=== PATIENT | male | born 1955 | race Caucasian/White ===

== ENCOUNTER 2021-05-25 11:47 | Inpatient (IN) ==
[2021-05-25] MEDS ORDERED: ALBUTEROL 2.5 MG/3 ML NEB RESP TX PRN (12:44)
[2021-05-25] MEDS ORDERED: MIDAZOLAM 100 MG in SODIUM CHLORIDE 0.9% 80 ML IV PRN (12:46)
[2021-05-25] MEDS ORDERED: ONDANSETRON 4 MG/2 ML VIAL IV PRN (12:46)
[2021-05-25 13:18] LABS: ABG HCO3 19.5 MMOL/L (20-26); ABG Oxygen Saturation 96.7 % (95-100); ABG PCO2 54.3 MM HG (35-48); ABG PH 7.222 (7.35-7.45); ABG PO2 93.2 MM HG (80-95); ABG TCO2 20.4 MMOL/L (23-27); Allen Test Positive; Pt O2 Delivery Device Ventilator
[2021-05-25] MEDS: ALBUTEROL/IPRATROPIUM 3 ML NEB RESP TX SCH ×2 (13:23→19:00)
[2021-05-25] MEDS ORDERED: AZITHROMYCIN INJ 500 MG in SODIUM CHLORIDE 0.9% 250 ML IV ONE (13:24)
[2021-05-25 14:04] LABS: Basophils % 0.2 % (0.0-0.8); Hemoglobin 11.8 GM/DL (14.0-18.0); Immature Granulocytes % 4.3 %; Immature Granulocytes Absolute 0.37 #; Lymphocytes # 0.7 10*3/uL (1.4-4.0); Lymphocytes % 7.7 % (21.2-54.2); Mean Corpuscular HGB Conc 31.1 GM/DL (32-36); Mean Corpuscular Volume 93.6 FL (87-102); Mean Platelet Volume 11.7 FL (9.6-12.0); Monocytes % 6.4 % (1.7-12.7); Neutrophils % 81.4 % (38.7-73.9); Platelet Count 145 T/CUMM (130-400); Red Blood Count 4.06 MC/CUMM (3.8-5.5); Red Cell Distribution Width 13.3 % (9.3-17.3); White Blood Count 8.5 T/CUMM (4-12)
[2021-05-25 14:36] LABS: Alanine Aminotransferase 20 U/L (16-61); Albumin 2.7 G/DL (3.4-5.0); Alkaline Phosphatase 76 U/L (45-117); Aspartate Amino Transferase 16 U/L (0-37); Bilirubin,Total < 0.39 MG/DL (0.20-1.00); Blood Urea Nitrogen 124 MG/DL (7-18); Calcium 8.1 MG/DL (8.5-10.1); Carbon Dioxide 25 MMOL/L (21-32); Estimated Glom Filtration Rate 23 ML/MIN; Glucose 128 MG/DL (74-106); HDL Cholesterol 24 MG/DL (40-60); Osmolality,Calculated 327.8 MOS/KG (273-304); Potassium 5.9 MMOL/L (3.5-5.1); Risk Ratio 4.17; Sodium 144 MMOL/L (136-145); Total Protein 6.4 G/DL (6.4-8.2); Triglycerides 198 MG/DL (2-150); VLDL Cholesterol 39.6 MG/DL
[2021-05-25] MEDS: FAMOTIDINE 20 MG/2 ML VIAL IV SCH (15:10)
[2021-05-25] MEDS: methylPREDNISolone SOD SUC 40 MG/1 ML VIAL IV SCH ×2 (15:14→20:54)
[2021-05-25 15:26] LABS: Hepatitis B Core IgM Quant 0.16 Index; Hepatitis B Surface Ag Quant < 0.10 Index; Hepatitis B Surface Ag Result Non-Reactive (NonReactive); Hepatitis C Virus Ab Quant > 11.00 Index; Hepatitis C Virus Ab Result Reactive (NonReactive)
[2021-05-25] MEDS: cefTRIAXone 1,000 MG in SODIUM CHLORIDE 0.9% 100 ML IV SCH (16:52)
[2021-05-25] MEDS ORDERED: ENOXAPARIN 100 MG/ML SYRINGE SUBCUT SCH (17:00)
[2021-05-25] MEDS: INSULIN LISPRO 100 UNIT/ML SUBCUT SCH (18:41)
[2021-05-25] MEDS ORDERED: LORazepam 2 MG/1 ML VIAL ONE (23:17)
[2021-05-25] MEDS ORDERED: LORazepam 2 MG/1 ML VIAL IV ONE (23:27)
[2021-05-26] MEDS: INSULIN LISPRO 100 UNIT/ML SUBCUT SCH ×4 (00:05→18:31)
[2021-05-26] MEDS: FAMOTIDINE 20 MG/2 ML VIAL IV SCH ×2 (00:23→13:58)
[2021-05-26] MEDS: ALBUTEROL/IPRATROPIUM 3 ML NEB RESP TX SCH ×4 (00:54→19:53)
[2021-05-26 04:48] LABS: ABG HCO3 22.5 MMOL/L (20-26); ABG Oxygen Saturation 97.8 % (95-100); ABG PCO2 37.8 MM HG (35-48); ABG PH 7.393 (7.35-7.45); ABG PO2 116.7 MM HG (80-95); ABG TCO2 23.7 MMOL/L (23-27)
[2021-05-26] MEDS: methylPREDNISolone SOD SUC 40 MG/1 ML VIAL IV SCH ×3 (05:17→21:22)
[2021-05-26 06:52] LABS: Basophils # 0.1 10*3/uL (0.0-0.2); Basophils % 0.6 % (0.0-0.8); Hematocrit 35.5 VOL% (42.0-52.0); Hemoglobin 11.7 GM/DL (14.0-18.0); Immature Granulocytes % 3.3 %; Immature Granulocytes Absolute 0.27 #; Lymphocytes # 0.9 10*3/uL (1.4-4.0); Lymphocytes % 11.4 % (21.2-54.2); Mean Corpuscular Volume 89.9 FL (87-102); Mean Platelet Volume 11.6 FL (9.6-12.0); Monocytes % 6.5 % (1.7-12.7); Neutrophils % 78.2 % (38.7-73.9); Platelet Count 129 T/CUMM (130-400); Red Blood Count 3.95 MC/CUMM (3.8-5.5); Red Cell Distribution Width 13.2 % (9.3-17.3); White Blood Count 8.1 T/CUMM (4-12)
[2021-05-26 07:13] LABS: Albumin 2.5 G/DL (3.4-5.0); Bilirubin,Total 0.6 MG/DL (0.20-1.00); Calcium 8.3 MG/DL (8.5-10.1); Osmolality,Calculated 331.4 MOS/KG (273-304); Potassium 5.1 MMOL/L (3.5-5.1); Total Protein 6.4 G/DL (6.4-8.2)
[2021-05-26 08:39] LABS: Anisocytosis 1+; Band Neutrophils 5 % (0-10); Lymphocytes 14 % (20-55); Platelet Estimate Adequate; Segmented Neutrophils 77 % (50-85); Total Cells Counted 100
[2021-05-26] MEDS: LORazepam 2 MG/1 ML VIAL IV PRN (13:50)
[2021-05-26] MEDS: ENOXAPARIN 30 MG/0.3 ML SYRINGE SUBCUT SCH (13:56)
[2021-05-26] MEDS: cefTRIAXone 1,000 MG in SODIUM CHLORIDE 0.9% 100 ML IV SCH (13:58)
[2021-05-26] MEDS: AZITHROMYCIN INJ 250 MG in SODIUM CHLORIDE 0.9% 250 ML IV SCH (13:59)
[2021-05-27] MEDS: INSULIN LISPRO 100 UNIT/ML SUBCUT SCH ×4 (00:22→18:20)
[2021-05-27] MEDS: FAMOTIDINE 20 MG/2 ML VIAL IV SCH ×2 (00:22→08:15)
[2021-05-27] MEDS: ALBUTEROL/IPRATROPIUM 3 ML NEB RESP TX SCH ×4 (00:53→18:45)
[2021-05-27 05:04] LABS: ABG Base Excess -0.5 MMOL/L (-2.5-2.5); ABG Oxygen Saturation 97.1 % (95-100); ABG PCO2 42.1 MM HG (35-48); ABG PH 7.377 (7.35-7.45); ABG PO2 92.4 MM HG (80-95); ABG TCO2 22.1 MMOL/L (23-27)
[2021-05-27 05:13] LABS: Basophils % 0.2 % (0.0-0.8); Hematocrit 37.4 VOL% (42.0-52.0); Hemoglobin 11.7 GM/DL (14.0-18.0); Immature Granulocytes % 1.9 %; Immature Granulocytes Absolute 0.18 #; Lymphocytes # 0.8 10*3/uL (1.4-4.0); Lymphocytes % 8.7 % (21.2-54.2); Mean Corpuscular HGB Conc 31.3 GM/DL (32-36); Mean Corpuscular Volume 92.1 FL (87-102); Mean Platelet Volume 11.9 FL (9.6-12.0); Monocytes % 7.7 % (1.7-12.7); Neutrophils % 81.5 % (38.7-73.9); Platelet Count 139 T/CUMM (130-400); Red Blood Count 4.06 MC/CUMM (3.8-5.5); Red Cell Distribution Width 13.2 % (9.3-17.3); White Blood Count 9.7 T/CUMM (4-12)
[2021-05-27 05:50] LABS: Calcium 8.3 MG/DL (8.5-10.1); Osmolality,Calculated 341.3 MOS/KG (273-304); Potassium 5.2 MMOL/L (3.5-5.1)
[2021-05-27] MEDS: methylPREDNISolone SOD SUC 40 MG/1 ML VIAL IV SCH ×3 (05:50→20:31)
[2021-05-27] MEDS ORDERED: SODIUM POLYSTYRENE SULFATE 15 GM/60 ML BOTTLE PO PRN (10:49)
[2021-05-27] MEDS: ENOXAPARIN 30 MG/0.3 ML SYRINGE SUBCUT SCH (12:24)
[2021-05-27] MEDS: cefTRIAXone 1,000 MG in SODIUM CHLORIDE 0.9% 100 ML IV SCH (14:02)
[2021-05-27] MEDS: TRIAMCINOLONE 0.025% CREAM 15 GM TUBE TOP SCH ×2 (14:12→20:27)
[2021-05-27] MEDS: AZITHROMYCIN INJ 250 MG in SODIUM CHLORIDE 0.9% 250 ML IV SCH (14:32)
[2021-05-27] MEDS: LORazepam 2 MG/1 ML VIAL IV PRN (15:48)
[2021-05-28] MEDS: ALBUTEROL/IPRATROPIUM 3 ML NEB RESP TX SCH ×4 (00:32→18:58)
[2021-05-28] MEDS: INSULIN LISPRO 100 UNIT/ML SUBCUT SCH ×4 (00:55→17:47)
[2021-05-28 04:27] LABS: ABG HCO3 26.1 MMOL/L (20-26); ABG Oxygen Saturation 97.5 % (95-100); ABG PCO2 42.7 MM HG (35-48); ABG PH 7.408 (7.35-7.45); ABG TCO2 23.7 MMOL/L (23-27)
[2021-05-28 05:30] LABS: Basophils % 0.2 % (0.0-0.8); Hematocrit 40.1 VOL% (42.0-52.0); Hemoglobin 12.8 GM/DL (14.0-18.0); Immature Granulocytes % 1.4 %; Immature Granulocytes Absolute 0.13 #; Lymphocytes % 10.6 % (21.2-54.2); Mean Corpuscular HGB Conc 31.9 GM/DL (32-36); Mean Corpuscular Volume 91.3 FL (87-102); Mean Platelet Volume 11.6 FL (9.6-12.0); Monocytes % 10.6 % (1.7-12.7); Neutrophils % 77.2 % (38.7-73.9); Platelet Count 146 T/CUMM (130-400); Red Blood Count 4.39 MC/CUMM (3.8-5.5); Red Cell Distribution Width 13.1 % (9.3-17.3); White Blood Count 9.4 T/CUMM (4-12)
[2021-05-28 06:04] LABS: Calcium 8.7 MG/DL (8.5-10.1); Potassium 5.3 MMOL/L (3.5-5.1)
[2021-05-28] MEDS: methylPREDNISolone SOD SUC 40 MG/1 ML VIAL IV SCH ×3 (06:11→21:50)
[2021-05-28] MEDS: FAMOTIDINE 20 MG/2 ML VIAL IV SCH (08:24)
[2021-05-28] MEDS: TRIAMCINOLONE 0.025% CREAM 15 GM TUBE TOP SCH ×2 (08:24→21:50)
[2021-05-28] MEDS ORDERED: LABETALOL 20 MG/4 ML SYRINGE IV PRN (10:00)
[2021-05-28] MEDS: carvediloL 25 MG TABLET PO SCH ×2 (10:56→21:50)
[2021-05-28] MEDS: ENOXAPARIN 30 MG/0.3 ML SYRINGE SUBCUT SCH (10:58)
[2021-05-28] MEDS: SODIUM CHLORIDE 0.45% 1,000 ML IV SCH (13:17)
[2021-05-28] MEDS: cefTRIAXone 1,000 MG in SODIUM CHLORIDE 0.9% 100 ML IV SCH (13:18)
[2021-05-28] MEDS: AZITHROMYCIN INJ 250 MG in SODIUM CHLORIDE 0.9% 250 ML IV SCH (14:45)
[2021-05-28] MEDS: SERTRALINE 100 MG TABLET PO SCH ×2 (14:45→21:50)
[2021-05-28] MEDS: FENOFIBRATE 145 MG TABLET PO SCH (14:45)
[2021-05-29] MEDS: INSULIN LISPRO 100 UNIT/ML SUBCUT SCH ×4 (00:52→17:58)
[2021-05-29] MEDS: ALBUTEROL/IPRATROPIUM 3 ML NEB RESP TX SCH ×4 (01:00→19:00)
[2021-05-29 04:07] LABS: ABG HCO3 25.3 MMOL/L (20-26); ABG Oxygen Saturation 98.8 % (95-100); ABG PCO2 41.4 MM HG (35-48); ABG PH 7.403 (7.35-7.45); ABG TCO2 22.9 MMOL/L (23-27)
[2021-05-29] MEDS: methylPREDNISolone SOD SUC 40 MG/1 ML VIAL IV SCH ×3 (06:24→21:53)
[2021-05-29 06:52] LABS: Basophils % 0.2 % (0.0-0.8); Eosinophils % 0.1 % (0.00-10.9); Immature Granulocytes % 1.3 %; Immature Granulocytes Absolute 0.13 #; Lymphocytes # 1.1 10*3/uL (1.4-4.0); Lymphocytes % 10.3 % (21.2-54.2); Mean Corpuscular HGB Conc 31.6 GM/DL (32-36); Mean Corpuscular Volume 91.8 FL (87-102); Monocytes % 8.5 % (1.7-12.7); Neutrophils % 79.6 % (38.7-73.9); Red Blood Count 4.14 MC/CUMM (3.8-5.5); White Blood Count 10.3 T/CUMM (4-12)
[2021-05-29 06:53] LABS: Platelet Count 108 T/CUMM (130-400)
[2021-05-29 07:31] LABS: Calcium 8.6 MG/DL (8.5-10.1); Osmolality,Calculated 333.3 MOS/KG (273-304); Potassium 5.1 MMOL/L (3.5-5.1)
[2021-05-29] MEDS: TRIAMCINOLONE 0.025% CREAM 15 GM TUBE TOP SCH ×2 (08:08→20:24)
[2021-05-29] MEDS: FAMOTIDINE 20 MG/2 ML VIAL IV SCH (08:08)
[2021-05-29] MEDS: SERTRALINE 100 MG TABLET PO SCH ×2 (08:08→20:24)
[2021-05-29] MEDS: FENOFIBRATE 145 MG TABLET PO SCH (08:08)
[2021-05-29] MEDS: carvediloL 25 MG TABLET PO SCH ×2 (08:08→20:22)
[2021-05-29] MEDS: INSULIN GLARGINE 100 UNIT/ML SUBCUT SCH ×2 (10:11→20:23)
[2021-05-29] MEDS: SODIUM CHLORIDE 0.45% 1,000 ML IV SCH (10:11)
[2021-05-29] MEDS: ENOXAPARIN 30 MG/0.3 ML SYRINGE SUBCUT SCH (10:33)
[2021-05-29 10:35] LABS: Bilirubin,Urine Negative (Negative); Blood, Urine Moderate mg/dL (Negative); Glucose,Urine (UA) >=500 mg/dL (Negative); Ketones,Urine Negative (Negative); Mucus,Urine Occasional /LPF (Occasional); Nitrite,Urine Negative (Negative); Protein,Urine 100 MG/DL; RBC,Urine 25 /HPF (0-4); Urine Appearance CLEAR (Clear); Urine Color Yellow (Yellow); Urine Specific Gravity 1.018 (1.001-1.035); Urine Urobilinogen < 2.0 EU/DL (0.2-1.0)
[2021-05-29] MEDS: DEXMEDETOMIDINE 200 MCG in SODIUM CHLORIDE 0.9% 48 ML IV PRN ×3 (11:21→20:11)
[2021-05-29] MEDS: MORPHINE 2 MG/1 ML SYRINGE IV PRN (12:09)
[2021-05-29] MEDS: cefTRIAXone 1,000 MG in SODIUM CHLORIDE 0.9% 100 ML IV SCH (14:28)
[2021-05-29] MEDS: AZITHROMYCIN INJ 250 MG in SODIUM CHLORIDE 0.9% 250 ML IV SCH (15:01)
[2021-05-29] MEDS ORDERED: DEXMEDETOMIDINE 400 MCG in SODIUM CHLORIDE 0.9% 96 ML IV PRN (21:03)
[2021-05-30] MEDS: ALBUTEROL/IPRATROPIUM 3 ML NEB RESP TX SCH ×4 (00:05→19:30)
[2021-05-30] MEDS: INSULIN LISPRO 100 UNIT/ML SUBCUT SCH ×4 (00:32→18:32)
[2021-05-30] MEDS: DEXMEDETOMIDINE 200 MCG in SODIUM CHLORIDE 0.9% 48 ML IV PRN (01:01)
[2021-05-30 03:40] LABS: ABG Base Excess 2.8 MMOL/L (-2.5-2.5); ABG HCO3 26.9 MMOL/L (20-26); ABG Oxygen Saturation 98.5 % (95-100); ABG PCO2 44.9 MM HG (35-48); ABG PH 7.404 (7.35-7.45); ABG TCO2 24.7 MMOL/L (23-27)
[2021-05-30] MEDS: methylPREDNISolone SOD SUC 40 MG/1 ML VIAL IV SCH ×3 (05:53→20:32)
[2021-05-30 06:17] LABS: Basophils % 0.1 % (0.0-0.8); Eosinophils % 0.1 % (0.00-10.9); Hematocrit 40.5 VOL% (42.0-52.0); Hemoglobin 12.7 GM/DL (14.0-18.0); Immature Granulocytes % 0.9 %; Lymphocytes # 0.9 10*3/uL (1.4-4.0); Lymphocytes % 7.9 % (21.2-54.2); Mean Corpuscular HGB Conc 31.4 GM/DL (32-36); Mean Corpuscular Volume 92.3 FL (87-102); Mean Platelet Volume 12.1 FL (9.6-12.0); Monocytes % 7.4 % (1.7-12.7); Neutrophils % 83.6 % (38.7-73.9); Platelet Count 100 T/CUMM (130-400); Red Blood Count 4.39 MC/CUMM (3.8-5.5); Red Cell Distribution Width 12.6 % (9.3-17.3); White Blood Count 11.1 T/CUMM (4-12)
[2021-05-30 06:31] LABS: Calcium 8.6 MG/DL (8.5-10.1)
[2021-05-30 06:33] LABS: Hypochromasia 1+; Microcytosis 1+; Platelet Estimate Decreased
[2021-05-30 06:36] LABS: Osmolality,Calculated 319.4 MOS/KG (273-304)
[2021-05-30] MEDS: SODIUM CHLORIDE 0.45% 1,000 ML IV SCH (08:34)
[2021-05-30] MEDS: FAMOTIDINE 20 MG/2 ML VIAL IV SCH (08:37)
[2021-05-30] MEDS: TRIAMCINOLONE 0.025% CREAM 15 GM TUBE TOP SCH ×2 (08:37→20:29)
[2021-05-30] MEDS: INSULIN GLARGINE 100 UNIT/ML SUBCUT SCH ×2 (08:37→20:21)
[2021-05-30] MEDS: carvediloL 25 MG TABLET PO SCH ×2 (08:37→20:21)
[2021-05-30] MEDS: FENOFIBRATE 145 MG TABLET PO SCH (08:37)
[2021-05-30] MEDS: SERTRALINE 100 MG TABLET PO SCH ×2 (08:37→20:21)
[2021-05-30] MEDS: ENOXAPARIN 30 MG/0.3 ML SYRINGE SUBCUT SCH (10:42)
[2021-05-30] MEDS: cefTRIAXone 1,000 MG in SODIUM CHLORIDE 0.9% 100 ML IV SCH (14:10)
[2021-05-30] MEDS: AZITHROMYCIN INJ 250 MG in SODIUM CHLORIDE 0.9% 250 ML IV SCH (15:14)
[2021-05-30] MEDS: levETIRAcetam 250 MG TABLET PO SCH (20:24)
[2021-05-30] MEDS: MORPHINE 2 MG/1 ML SYRINGE IV PRN (22:50)
[2021-05-31 00:01] LABS: ABG Base Excess 1.2 MMOL/L (-2.5-2.5); ABG HCO3 25.5 MMOL/L (20-26); ABG Oxygen Saturation 99.3 % (95-100); ABG PCO2 65.4 MM HG (35-48)
[2021-05-31] MEDS: INSULIN LISPRO 100 UNIT/ML SUBCUT SCH ×5 (00:47→23:54)
[2021-05-31] MEDS: SODIUM CHLORIDE 0.45% 1,000 ML IV SCH (01:01)
[2021-05-31 01:08] LABS: ABG Base Excess 1.4 MMOL/L (-2.5-2.5); ABG HCO3 25.7 MMOL/L (20-26); ABG Oxygen Saturation 99.2 % (95-100); ABG PCO2 59.3 MM HG (35-48); ABG TCO2 26.4 MMOL/L (23-27)
[2021-05-31] MEDS: ALBUTEROL/IPRATROPIUM 3 ML NEB RESP TX SCH ×4 (01:32→18:51)
[2021-05-31 01:46] LABS: Basophils % 0.1 % (0.0-0.8); Eosinophils % 0.1 % (0.00-10.9); Hemoglobin 10.7 GM/DL (14.0-18.0); Immature Granulocytes % 0.9 %; Lymphocytes # 0.7 10*3/uL (1.4-4.0); Lymphocytes % 6.3 % (21.2-54.2); Mean Corpuscular HGB Conc 30.6 GM/DL (32-36); Mean Corpuscular Volume 93.3 FL (87-102); Mean Platelet Volume 12.4 FL (9.6-12.0); Monocytes % 3.8 % (1.7-12.7); Neutrophils % 88.8 % (38.7-73.9); Red Blood Count 3.75 MC/CUMM (3.8-5.5); Red Cell Distribution Width 12.3 % (9.3-17.3); White Blood Count 10.9 T/CUMM (4-12)
[2021-05-31 01:50] LABS: Platelet Count 92 T/CUMM (130-400)
[2021-05-31 02:11] LABS: Calcium 8.2 MG/DL (8.5-10.1)
[2021-05-31 02:14] LABS: Osmolality,Calculated 299.4 MOS/KG (273-304); Potassium 5.4 MMOL/L (3.5-5.1)
[2021-05-31 02:37] LABS: Hypochromasia 1+; Microcytosis 1+; Platelet Estimate Decreased
[2021-05-31 03:22] LABS: ABG Base Excess 1.6 MMOL/L (-2.5-2.5); ABG HCO3 25.9 MMOL/L (20-26); ABG Oxygen Saturation 99.3 % (95-100); ABG PCO2 59.2 MM HG (35-48); ABG PH 7.303 (7.35-7.45); ABG TCO2 26.6 MMOL/L (23-27)
[2021-05-31] MEDS: methylPREDNISolone SOD SUC 40 MG/1 ML VIAL IV SCH ×3 (06:17→21:49)
[2021-05-31] MEDS: carvediloL 25 MG TABLET PO SCH ×2 (09:14→20:09)
[2021-05-31] MEDS: INSULIN GLARGINE 100 UNIT/ML SUBCUT SCH ×2 (09:14→20:00)
[2021-05-31] MEDS: FAMOTIDINE 20 MG/2 ML VIAL IV SCH (09:27)
[2021-05-31] MEDS: levETIRAcetam 250 MG TABLET PO SCH ×2 (09:27→20:01)
[2021-05-31] MEDS: SERTRALINE 100 MG TABLET PO SCH ×2 (09:27→20:01)
[2021-05-31] MEDS: FENOFIBRATE 145 MG TABLET PO SCH (09:27)
[2021-05-31] MEDS: TRIAMCINOLONE 0.025% CREAM 15 GM TUBE TOP SCH ×2 (09:28→20:01)
[2021-05-31] MEDS: cefTRIAXone 1,000 MG in SODIUM CHLORIDE 0.9% 100 ML IV SCH (12:38)
[2021-05-31] MEDS: ENOXAPARIN 30 MG/0.3 ML SYRINGE SUBCUT SCH (12:38)
[2021-05-31] MEDS: LACTULOSE 20 GM/30 ML UDCUP PO SCH ×2 (16:24→20:00)
[2021-06-01] MEDS: ALBUTEROL/IPRATROPIUM 3 ML NEB RESP TX SCH ×4 (00:22→19:40)
[2021-06-01 03:44] LABS: ABG Base Excess 3.9 MMOL/L (-2.5-2.5); ABG HCO3 27.9 MMOL/L (20-26); ABG Oxygen Saturation 95.5 % (95-100); ABG PCO2 46.2 MM HG (35-48); ABG PH 7.409 (7.35-7.45); ABG PO2 76.2 MM HG (80-95); ABG TCO2 26.1 MMOL/L (23-27)
[2021-06-01 05:00] LABS: Basophils % 0.1 % (0.0-0.8); Eosinophils % 0.2 % (0.00-10.9); Hematocrit 36.5 VOL% (42.0-52.0); Hemoglobin 11.4 GM/DL (14.0-18.0); Immature Granulocytes % 0.9 %; Lymphocytes # 1.2 10*3/uL (1.4-4.0); Lymphocytes % 10.3 % (21.2-54.2); Mean Corpuscular HGB Conc 31.2 GM/DL (32-36); Mean Corpuscular Volume 91.5 FL (87-102); Mean Platelet Volume 12.6 FL (9.6-12.0); Monocytes % 7.4 % (1.7-12.7); Neutrophils % 81.1 % (38.7-73.9); Platelet Count 92 T/CUMM (130-400); Red Blood Count 3.99 MC/CUMM (3.8-5.5); Red Cell Distribution Width 12.2 % (9.3-17.3); White Blood Count 11.7 T/CUMM (4-12)
[2021-06-01 05:18] LABS: Calcium 8.1 MG/DL (8.5-10.1); Osmolality,Calculated 294.3 MOS/KG (273-304); Potassium 4.6 MMOL/L (3.5-5.1)
[2021-06-01] MEDS: INSULIN LISPRO 100 UNIT/ML SUBCUT SCH ×4 (05:40→23:45)
[2021-06-01] MEDS: methylPREDNISolone SOD SUC 40 MG/1 ML VIAL IV SCH ×3 (05:48→21:15)
[2021-06-01] MEDS: FENOFIBRATE 145 MG TABLET PO SCH (08:09)
[2021-06-01] MEDS: LACTULOSE 20 GM/30 ML UDCUP PO SCH ×2 (08:09→21:15)
[2021-06-01] MEDS: carvediloL 25 MG TABLET PO SCH ×2 (08:10→21:15)
[2021-06-01] MEDS: levETIRAcetam 250 MG TABLET PO SCH ×2 (08:10→21:15)
[2021-06-01] MEDS: SERTRALINE 100 MG TABLET PO SCH ×2 (08:10→21:15)
[2021-06-01] MEDS: FAMOTIDINE 20 MG/2 ML VIAL IV SCH (08:11)
[2021-06-01] MEDS: INSULIN GLARGINE 100 UNIT/ML SUBCUT SCH ×2 (08:11→21:15)
[2021-06-01] MEDS: TRIAMCINOLONE 0.025% CREAM 15 GM TUBE TOP SCH ×2 (08:12→21:15)
[2021-06-01] MEDS: ENOXAPARIN 30 MG/0.3 ML SYRINGE SUBCUT SCH (12:21)
[2021-06-01] MEDS: MORPHINE 2 MG/1 ML SYRINGE IV PRN (12:43)
[2021-06-01] MEDS: cefTRIAXone 1,000 MG in SODIUM CHLORIDE 0.9% 100 ML IV SCH (12:44)
[2021-06-02] MEDS: ALBUTEROL/IPRATROPIUM 3 ML NEB RESP TX SCH ×4 (00:41→20:38)
[2021-06-02 04:38] LABS: ABG Base Excess 4.1 MMOL/L (-2.5-2.5); ABG Oxygen Saturation 94.9 % (95-100); ABG PCO2 44.5 MM HG (35-48); ABG PH 7.424 (7.35-7.45); ABG PO2 74.6 MM HG (80-95); ABG TCO2 25.9 MMOL/L (23-27)
[2021-06-02 05:30] LABS: Basophils % 0.1 % (0.0-0.8); Hematocrit 37.1 VOL% (42.0-52.0); Immature Granulocytes % 0.6 %; Immature Granulocytes Absolute 0.08 #; Lymphocytes # 1.2 10*3/uL (1.4-4.0); Lymphocytes % 8.7 % (21.2-54.2); Mean Corpuscular HGB Conc 32.3 GM/DL (32-36); Mean Platelet Volume 12.6 FL (9.6-12.0); Monocytes % 4.9 % (1.7-12.7); Neutrophils % 85.7 % (38.7-73.9); Platelet Count 108 T/CUMM (130-400); Red Blood Count 4.17 MC/CUMM (3.8-5.5); Red Cell Distribution Width 12.2 % (9.3-17.3); White Blood Count 13.5 T/CUMM (4-12)
[2021-06-02 05:46] LABS: Calcium 8.3 MG/DL (8.5-10.1); Osmolality,Calculated 288.4 MOS/KG (273-304); Potassium 4.6 MMOL/L (3.5-5.1)
[2021-06-02] MEDS: methylPREDNISolone SOD SUC 40 MG/1 ML VIAL IV SCH ×3 (06:00→21:42)
[2021-06-02] MEDS: INSULIN LISPRO 100 UNIT/ML SUBCUT SCH ×4 (07:34→21:44)
[2021-06-02] MEDS: FAMOTIDINE 20 MG/2 ML VIAL IV SCH (09:00)
[2021-06-02] MEDS: TRIAMCINOLONE 0.025% CREAM 15 GM TUBE TOP SCH ×2 (09:00→21:50)
[2021-06-02] MEDS: FENOFIBRATE 145 MG TABLET PO SCH (09:01)
[2021-06-02] MEDS: levETIRAcetam 250 MG TABLET PO SCH ×2 (09:01→18:33)
[2021-06-02] MEDS: SERTRALINE 100 MG TABLET PO SCH ×2 (09:01→21:42)
[2021-06-02] MEDS: carvediloL 25 MG TABLET PO SCH ×2 (09:02→21:42)
[2021-06-02] MEDS: LACTULOSE 20 GM/30 ML UDCUP PO SCH ×2 (09:02→21:39)
[2021-06-02] MEDS: INSULIN GLARGINE 100 UNIT/ML SUBCUT SCH ×3 (09:57→21:43)
[2021-06-02] MEDS ORDERED: NICOTINE 21 MG/24 HR PATCH TRANSDERM PRN (10:04)
[2021-06-02] MEDS ORDERED: HydrOXYzine PAMOATE 25 MG CAPSULE PO PRN (10:06)
[2021-06-02] MEDS: ENOXAPARIN 30 MG/0.3 ML SYRINGE SUBCUT SCH (12:55)
[2021-06-02] MEDS ORDERED: INSULIN GLARGINE 100 UNIT/ML SUBCUT SCH (21:00)
[2021-06-03] MEDS: ALBUTEROL/IPRATROPIUM 3 ML NEB RESP TX SCH ×4 (02:08→19:05)
[2021-06-03 05:52] LABS: Basophils % 0.1 % (0.0-0.8); Hematocrit 32.4 VOL% (42.0-52.0); Hemoglobin 10.6 GM/DL (14.0-18.0); Immature Granulocytes % 0.8 %; Immature Granulocytes Absolute 0.13 #; Lymphocytes # 1.1 10*3/uL (1.4-4.0); Lymphocytes % 7.1 % (21.2-54.2); Mean Corpuscular HGB Conc 32.7 GM/DL (32-36); Mean Platelet Volume 12.5 FL (9.6-12.0); Monocytes % 5.6 % (1.7-12.7); Neutrophils % 86.4 % (38.7-73.9); Platelet Count 120 T/CUMM (130-400); Red Blood Count 3.64 MC/CUMM (3.8-5.5); Red Cell Distribution Width 12.3 % (9.3-17.3); White Blood Count 15.9 T/CUMM (4-12)
[2021-06-03 06:11] LABS: Calcium 8.2 MG/DL (8.5-10.1); Potassium 4.2 MMOL/L (3.5-5.1)
[2021-06-03] MEDS: methylPREDNISolone SOD SUC 40 MG/1 ML VIAL IV SCH (07:00)
[2021-06-03] MEDS: levETIRAcetam 250 MG TABLET PO SCH ×2 (08:20→21:26)
[2021-06-03] MEDS: LACTULOSE 20 GM/30 ML UDCUP PO SCH ×2 (08:21→21:26)
[2021-06-03] MEDS: carvediloL 25 MG TABLET PO SCH ×2 (08:22→21:27)
[2021-06-03] MEDS: ATORVASTATIN 20 MG TABLET PO SCH (08:23)
[2021-06-03] MEDS: FENOFIBRATE 145 MG TABLET PO SCH (08:23)
[2021-06-03] MEDS: TRIAMCINOLONE 0.025% CREAM 15 GM TUBE TOP SCH ×2 (08:23→21:27)
[2021-06-03] MEDS: SERTRALINE 100 MG TABLET PO SCH ×2 (08:24→21:26)
[2021-06-03] MEDS: INSULIN GLARGINE 100 UNIT/ML SUBCUT SCH ×2 (08:34→21:26)
[2021-06-03] MEDS: INSULIN LISPRO 100 UNIT/ML SUBCUT SCH ×4 (08:36→21:27)
[2021-06-03] MEDS: FAMOTIDINE 8 MG/ML 50 ML/BOTTLE PO SCH ×2 (09:50→11:08)
[2021-06-03] MEDS: ENOXAPARIN 30 MG/0.3 ML SYRINGE SUBCUT SCH (21:27)
[2021-06-04] MEDS: ALBUTEROL/IPRATROPIUM 3 ML NEB RESP TX SCH ×3 (00:50→13:40)
[2021-06-04 06:14] LABS: Basophils % 0.3 % (0.0-0.8); Eosinophils # 0.1 10*3/uL (0.0-0.87); Eosinophils % 1.1 % (0.00-10.9); Hematocrit 32.2 VOL% (42.0-52.0); Hemoglobin 10.4 GM/DL (14.0-18.0); Immature Granulocytes % 0.7 %; Immature Granulocytes Absolute 0.07 #; Lymphocytes # 1.1 10*3/uL (1.4-4.0); Lymphocytes % 11.2 % (21.2-54.2); Mean Corpuscular HGB Conc 32.3 GM/DL (32-36); Mean Corpuscular Volume 90.2 FL (87-102); Mean Platelet Volume 12.2 FL (9.6-12.0); Monocytes % 7.8 % (1.7-12.7); Neutrophils % 78.9 % (38.7-73.9); Platelet Count 115 T/CUMM (130-400); Red Blood Count 3.57 MC/CUMM (3.8-5.5); Red Cell Distribution Width 12.4 % (9.3-17.3); White Blood Count 9.7 T/CUMM (4-12)
[2021-06-04 06:29] LABS: Calcium 8.1 MG/DL (8.5-10.1); Osmolality,Calculated 293.4 MOS/KG (273-304); Potassium 3.7 MMOL/L (3.5-5.1)
[2021-06-04] MEDS ORDERED: ERGOCALCIFEROL 50,000 UNIT CAPSULE PO ONE (08:30)
[2021-06-04] MEDS ORDERED: CHOLECALCIFEROL 1,000 UNIT TABLET PO SCH (09:00)
[2021-06-04] MEDS ORDERED: predniSONE 20 MG TABLET PO SCH (09:00)
[2021-06-04] MEDS: FENOFIBRATE 145 MG TABLET PO SCH (10:56)
[2021-06-04] MEDS: LACTULOSE 20 GM/30 ML UDCUP PO SCH (10:56)
[2021-06-04] MEDS: ATORVASTATIN 20 MG TABLET PO SCH (10:58)
[2021-06-04] MEDS: levETIRAcetam 250 MG TABLET PO SCH (10:58)
[2021-06-04] MEDS: TRIAMCINOLONE 0.025% CREAM 15 GM TUBE TOP SCH (10:59)
[2021-06-04] MEDS: INSULIN GLARGINE 100 UNIT/ML SUBCUT SCH (10:59)
[2021-06-04] MEDS: SERTRALINE 100 MG TABLET PO SCH (10:59)
[2021-06-04] MEDS: FAMOTIDINE 8 MG/ML 50 ML/BOTTLE PO SCH (11:02)
[2021-06-04] MEDS: INSULIN LISPRO 100 UNIT/ML SUBCUT SCH ×2 (11:02→12:42)
[2021-06-04] MEDS: carvediloL 25 MG TABLET PO SCH (11:09)
[2021-06-04 11:15] VITALS: BP 130/80
[2021-06-04] MEDS ORDERED: carvediloL 12.5 MG TABLET PO SCH (17:00)
== END 2021-06-04 14:58 | DRG 207 ==
LOC: N.ED 11:47 → SUATTDRO 12:44 → N.EDINP 12:44 → N.CC 16:12 → N.5E 06-02 15:46
PROVIDERS: ADMIT Internal Medicine; ATTEND Hospitalist